=== PATIENT | female | born 1930 | race Caucasian/White ===

== ENCOUNTER 2016-04-27 09:10 | Inpatient (IN) | payer MEDICARE, OTHER ==
[~2016-04-27] VITALS: Ht 165.1 cm; Wt 66.3 kg
[2016-05-01] MEDS ORDERED: WARF-23 PO (11:48)
[2016-05-01] MEDS ORDERED: METF500T PO (11:48)
[2016-05-01] MEDS ORDERED: METO50TA PO (11:48)
[2016-05-01] MEDS ORDERED: AMLO5TAB2 PO (11:48)
[2016-05-01] MEDS ORDERED: HYDR12.56 PO (11:48)
[2016-05-01] MEDS ORDERED: BENI40TA3 PO (11:48)
[2016-05-07] MEDS ORDERED: PHENYLEPH/NS 1000 MCG/10 ML SYR IV ONE (12:00)
[2016-05-07] MEDS ORDERED: ONDANSETRON HCL 4 MG/2 ML VIAL IV PUSH ONE (12:00)
[2016-05-07] MEDS ORDERED: LACTATED RINGER'S 1000 ML INJ 1,000 ML IV ONE (12:00)
[2016-05-07] MEDS ORDERED: NEOSTIGMINE 3 MG/3 ML SYR IV ONE (12:00)
[2016-05-07] MEDS ORDERED: PROPOFOL 200 MG/20 ML AMP IV ONE (12:00)
[2016-05-07 12:38] VITALS: BP 158/75; PULSE 103; RESP 18; TEMP 98; O2SAT 98
[2016-05-07] MEDS ORDERED: ALVIMOPAN 12 MG CAPSULE - On Call PO SCH (12:45)
[2016-05-07] MEDS ORDERED: INSULIN HUMAN REGULAR 1,000 UNITS/10 ML VIAL SQ PRN (12:45)
[2016-05-07] MEDS: SODIUM CHLORID 0.9% 500 ML IV SCH (12:45)
[2016-05-07] MEDS: LACTATED RINGER'S 1000 ML IV SCH (12:45)
[2016-05-07] MEDS ORDERED: METOPROLOL TARTRATE 25 MG TAB PO PRN (12:45)
[2016-05-07] MEDS ORDERED: metroNIDAZOLE 500 MG INJ 100 ML IV ONE (12:48)
[2016-05-07] MEDS ORDERED: ceFAZolin INJ 1,000 MG VIAL ONE (12:48)
[2016-05-07] MEDS ORDERED: SODIUM CHLORIDE 0.9% INJ 100 ML ONE (12:49)
[2016-05-07 13:07] LABS: INTERNATIONAL NORMALIZED RATIO 1.2 RATIO; PROTHROMBIN TIME - PATIENT 13.1 SEC (9.8-11.6)
[2016-05-07] MEDS ORDERED: MIDAZOLAM HCL 2 MG/2 ML VIAL ONE (13:29)
[2016-05-07] MEDS ORDERED: ACETAMINOPHEN 1000 MG/100 ML VIAL IV ONE (13:29)
[2016-05-07] MEDS ORDERED: ceFAZolin 1,000 MG/NS 100 ML IV SCH ×2 (13:45)
[2016-05-07] MEDS ORDERED: DEXT 5%-NACL 0.9% 1000 ML INJ 1,000 ML IV SCH (13:45)
[2016-05-07] MEDS ORDERED: METRONIDAZOLE 500 MG/100 ML ISONTONIC SOLN IV SCH (13:45)
[2016-05-07] MEDS ORDERED: GLUCAGON 1 MG/ML VIAL ONE (15:20)
[2016-05-07] MEDS ORDERED: NALOXONE HCL 0.4 MG/ML AMP IV PRN (16:15)
[2016-05-07] MEDS ORDERED: Post-op Orders (for Pharmacy) MISC XX ONE (16:15)
[2016-05-07] MEDS ORDERED: ACETAMINOPHEN/HYDROcodone 325 MG/5 MG TAB PO PRN ×2 (16:15)
[2016-05-07] MEDS ORDERED: BENZOCAINE 6 MG/MENTHOL 10 MG LOZENGE SUCK-ON PRN (16:15)
[2016-05-07] MEDS ORDERED: POTASSIUM CHLOR 40 MEQ PREMIX 100 ML IV PRN (16:15)
[2016-05-07] MEDS ORDERED: MORPHINE SULFATE 30 MG/30 ML PCA IV SCH (16:15)
[2016-05-07] MEDS ORDERED: ZOLPIDEM TARTRATE 5 MG TAB PO PRN (16:15)
[2016-05-07] MEDS ORDERED: ONDANSETRON HCL 4 MG/2 ML VIAL IV PRN (16:15)
[2016-05-07] MEDS ORDERED: ENALAPRILAT 1.25 MG/ML VIAL IV PRN (16:15)
[2016-05-07] MEDS ORDERED: DO NOT ADM ANY ANTICOAGULANT DRUGS XX PRN (16:15)
[2016-05-07] MEDS ORDERED: POTASSIUM CHLOR 20 MEQ PREMIX 100 ML IV PRN (16:15)
[2016-05-07] MEDS ORDERED: SODIUM CHLORIDE 0.9% FLUSH 5 ML FLUSH IVF PRN (16:15)
[2016-05-07] MEDS ORDERED: GLUCAGON 1 MG/ML VIAL OTHER PRN (16:30)
[2016-05-07] MEDS ORDERED: DEXTROSE 50% IN WATER 50 ML VIAL(D50) IV PUSH PRN (16:30)
[2016-05-07] MEDS ORDERED: fentaNYL CITRATE 250 MCG/5 ML AMP ONE (16:35)
[2016-05-07] MEDS ORDERED: *morphine SULFATE 8 MG/ML PERIprocedure ONLY ONE ×2 (16:39→17:01)
[2016-05-07 16:45] LABS: AUTOMATED NEUTROPHIL # 7.3 TH/MM3 (1.8-7.7); BASOPHIL # 0.1 TH/MM3 (0-0.2); BASOPHIL % 0.6 % (0.0-2.0); EOSINOPHIL # 0.1 TH/MM3 (0-0.4); EOSINOPHIL % 0.8 % (0.0-4.0); HEMATOCRIT 40.9 % (35.0-46.0); HEMO FLAGS DIFF FINAL; LYMPH % 12.6 % (9.0-44.0); LYMPHOCYTE # 1.1 TH/MM3 (1.0-4.8); MEAN CORPUSCULAR HEMOGLOBIN 26.2 PG (27.0-34.0); MEAN CORPUSCULAR HGB CONC 32.8 % (32.0-36.0); MONO % 3.2 % (0.0-8.0); NEUT % 82.8 % (16.0-70.0); PLATELET COUNT 232 TH/MM3 (150-450); RED BLOOD COUNT 5.12 MIL/MM3 (4.00-5.30); RED CELL DISTRIBUTION WIDTH 16.5 % (11.6-17.2); WHITE BLOOD COUNT 8.9 TH/MM3 (4.0-11.0)
[2016-05-07 17:06] LABS: BICARBONATE 24.4 MEQ/L (21.0-32.0); POTASSIUM 3.4 MEQ/L (3.5-5.1)
--- NOTE | 2016-05-07 17:09 | MH ---
cc: MICHELLE ALONSO ARUN M.D. PECK, REBECCA (. M.D. DATE OF ADMISSION 05/07/2016 CHIEF COMPLAINT Rectosigmoid cancer. HISTORY OF PRESENT ILLNESS This patient is an 85-year-old female patient who was referred by Dr. Martinez with a carcinoma of the colon. The patient had a nonobstructing lesion seen by Dr. Martinez on colonoscopy. He was able to do a full colonoscopy and biopsied adenocarcinoma. CT scan of the chest and abdomen was basically normal. There was no evidence of metastatic disease. The patient says that she developed bleeding about a year ago. She was placed on blood thinners for her atrial fibrillation, has noted bleeding all along. Dr. Anette Porter, her family doctor, had recommended colonoscopy screening to her for long time, but she had not agreed to have that done until at this time. PAST MEDICAL HISTORY 1. Hypertension 2. Atrial fibrillation 4. Diabetes. FAMILY HISTORY Unknown. SOCIAL HISTORY Occasional alcohol. The patient does not smoke. MEDICATIONS 1. Calcium 2. [place] 3. 3. Ocuvite. 4. Magnesium. 5. Coumadin 5 mg a day 6. Amlodipine 5 mg a day. 7. Metformin 500 mg daily. 8. Metoprolol 50 mg daily. 9. Multivitamins. PAST SURGICAL HISTORY 1. Mastectomy 2. Hysterectomy. PHYSICAL EXAMINATION GENERAL: Well-developed, well-nourished female in no acute distress. SKIN: Warm and dry. HEENT: Extraocular muscles intact. NECK: Supple. LUNGS: Chest is clear. ABDOMEN: Flat, soft, nontender. No masses. RECTAL: Within normal limits. Flexible sigmoidoscopy shows a lesion at about 15-17 cm. EXTREMITIES: Range of motion within normal limits except the right knee which is arthritic and painful. IMPRESSION Carcinoma of the rectosigmoid colon. PLAN Recommend sigmoid colectomy, low anterior resection. I have explained the risks and benefits to the patient. She understands and wishes to proceed. MD NICOLE Nelson/ /4:28 PM /5:02 PM
[2016-05-07] MEDS ORDERED: *LABETALOL HCL 100 MG/20 ML VIAL PERIprocedural Use ONLY ONE (17:31)
[2016-05-07] MEDS: D5-LR + KCL 20 MEQ INJ 1,000 ML IV SCH ×2 (17:40→22:45)
[2016-05-07] MEDS: METOCLOPRAMIDE HCL 10 MG/2 ML VIAL IVS SCH (18:22)
[2016-05-07] MEDS: FUROSEMIDE 20 MG/2 ML VIAL IV SCH (20:45)
[2016-05-07] MEDS: metroNIDAZOLE 500 MG INJ 100 ML IV SCH (20:45)
[2016-05-07] MEDS: SODIUM CHLORIDE 0.9% FLUSH 5 ML FLUSH IVF SCH (21:00)
[2016-05-07] MEDS: METOPROLOL TARTRATE 50 MG TAB PO SCH (21:00)
[2016-05-07] MEDS: INSULIN NovoLIN REGULAR SUPPLEMENTAL SCALE SQ SCH (21:00)
[2016-05-07] MEDS: ceFAZolin 2 GM PREMIX 50 ML IV SCH (21:50)
[2016-05-08] VITALS (13 sets, daily range): BP systolic 132–159; BP diastolic 70–88; PULSE 75–96; RESP 18; TEMP 98.3–98.5; O2SAT 96–99
[2016-05-08] MEDS: metroNIDAZOLE 500 MG INJ 100 ML IV SCH ×2 (04:45→13:28)
[2016-05-08] MEDS: SODIUM CHLORID 0.9% 500 ML IV SCH (05:25)
[2016-05-08] MEDS: ceFAZolin 2 GM PREMIX 50 ML IV SCH ×2 (05:45→13:28)
[2016-05-08] MEDS: METOCLOPRAMIDE HCL 10 MG/2 ML VIAL IVS SCH ×4 (06:00→17:08)
[2016-05-08] MEDS: D5-LR + KCL 20 MEQ INJ 1,000 ML IV SCH ×3 (06:20→21:34)
[2016-05-08 07:11] LABS: BASOPHIL % 0.1 % (0.0-2.0); HEMO FLAGS DIFF FINAL; LYMPH % 6.5 % (9.0-44.0); LYMPHOCYTE # 0.7 TH/MM3 (1.0-4.8); MEAN CELL VOLUME 79.7 FL (80.0-100.0); MEAN CORPUSCULAR HEMOGLOBIN 27.4 PG (27.0-34.0); MEAN CORPUSCULAR HGB CONC 34.4 % (32.0-36.0); MONO % 7.9 % (0.0-8.0); NEUT % 85.5 % (16.0-70.0); PLATELET COUNT 209 TH/MM3 (150-450); RED BLOOD COUNT 4.26 MIL/MM3 (4.00-5.30); RED CELL DISTRIBUTION WIDTH 16.5 % (11.6-17.2); WHITE BLOOD COUNT 10.5 TH/MM3 (4.0-11.0)
[2016-05-08] MEDS: INSULIN NovoLIN REGULAR SUPPLEMENTAL SCALE SQ SCH ×4 (07:15→21:00)
[2016-05-08 07:28] LABS: BICARBONATE 25.4 MEQ/L (21.0-32.0); POTASSIUM 3.8 MEQ/L (3.5-5.1)
[2016-05-08] MEDS: amLODIPine BESYLATE 5 MG TAB PO SCH (09:00)
[2016-05-08] MEDS: FUROSEMIDE 20 MG/2 ML VIAL IV SCH ×2 (09:00→21:05)
[2016-05-08] MEDS: ALVIMOPAN 12 MG CAPSULE - Post-op dosing PO SCH ×2 (09:00→21:05)
[2016-05-08] MEDS: PANTOPRAZOLE SODIUM 40 MG VIAL IVP SCH (09:00)
[2016-05-08] MEDS: SODIUM CHLORIDE 0.9% FLUSH 5 ML FLUSH IVF SCH ×2 (09:00→21:00)
[2016-05-08] MEDS: LOSARTAN 50 MG TAB PO SCH (09:00)
[2016-05-08] MEDS: METOPROLOL TARTRATE 50 MG TAB PO SCH ×2 (09:00→21:05)
[2016-05-08] MEDS: LACTATED RINGER'S 1000 ML IV SCH (12:45)
[2016-05-08] MEDS: PCA - TOTAL MG MORPHINE DELIVERED PER SHIFT SCH ×2 (14:00→22:00)
--- NOTE | 2016-05-08 15:55 | HHI.PR ---
Subjective Remarks No complaints. No N or V. No BMs. Has not been OOB to chair yet. D/W RNs Objective Vital Signs Date Time Temp Pulse Resp B/P Pulse Ox O2 Delivery O2 Flow Rate FiO2 05/08/16 15:34 98 Nasal Cannula 3.00 05/08/16 14:38 83 05/08/16 14:00 18 05/08/16 13:12 75 05/08/16 11:20 98.3 96 18 132/78 98 05/08/16 09:55 98.6 100 14 136/71 98 Nasal Cannula 2 05/08/16 07:30 98.4 108 14 128/72 98 Nasal Cannula 2 05/08/16 06:00 98.4 101 13 142/69 98 Nasal Cannula 2 05/08/16 05:00 99 12 133/68 99 Nasal Cannula 2 05/08/16 04:00 98.5 97 12 171/93 94 Nasal Cannula 2 05/08/16 03:00 101 12 94/45 95 Nasal Cannula 2 05/08/16 02:00 98.8 96 12 130/67 96 Nasal Cannula 2 05/08/16 01:00 92 12 135/75 94 Nasal Cannula 2 05/08/16 00:00 98.5 95 12 131/59 95 Nasal Cannula 2 05/07/16 23:00 91 12 121/56 95 Nasal Cannula 2 05/07/16 22:00 98.1 94 12 104/54 96 Nasal Cannula 2 05/07/16 21:00 103 15 141/73 93 Nasal Cannula 2 05/07/16 20:00 97.8 108 13 120/62 92 Nasal Cannula 2 05/07/16 19:00 105 15 158/86 97 Nasal Cannula 2 05/07/16 18:30 102 12 146/68 96 Nasal Cannula 2 05/07/16 18:00 97.7 106 12 151/78 95 Nasal Cannula 2 05/07/16 17:49 12 05/07/16 17:45 104 12 140/55 95 Nasal Cannula 2 05/07/16 17:30 105 12 180/90 97 Nasal Cannula 2 05/07/16 17:15 102 12 160/104 96 Nasal Cannula 2 05/07/16 17:00 99 12 156/93 96 Nasal Cannula 2 05/07/16 16:45 98 12 185/85 96 Nasal Cannula 3 05/07/16 16:30 93 14 171/98 97 Nasal Cannula 3 05/07/16 16:20 97.5 89 14 181/89 99 Nasal Cannula 3 I/O 05/07/16 05/07/16 05/07/16 05/08/16 05/08/16 05/08/16 07:00 15:00 23:00 07:00 15:00 23:00 Intake Total 2575 ml Output Total 685 ml 520 ml Balance 1890 ml -520 ml Intake IV Total 1175 ml Other 1400 ml Output Urine Total 565 ml 450 ml Drainage Total 70 ml 70 ml Estimated Blood Loss 50 ml Result Diagram: 05/08/16 0632 05/08/16 0632 Objective Remarks VS-S Abd: flat,soft,dressing dry I&Os-OK Labs-OK Assessment and Plan Assessment and Plan Stable POD#1 Plan: must be OOB today-D/W RNs FLD tomorrow D/C tele Transfer to [facility] D/C INSTRUMENT/CONTROL TECHNICIAN and parra in Qamar Puga MD May 08, 2016 15:55
[2016-05-08] MEDS: HEPARIN SODIUM - SQ 10,000 UNITS/ML VIAL SQ SCH (17:07)
[2016-05-08] MEDS: ALVIMOPAN 12 MG CAPSULE PO SCH (21:00)
[2016-05-09] VITALS (14 sets, daily range): BP systolic 140–177; BP diastolic 69–88; PULSE 70–108; RESP 17–20; TEMP 97.6–99.4; O2SAT 94–97
[2016-05-09] MEDS: METOCLOPRAMIDE HCL 10 MG/2 ML VIAL IVS SCH ×4 (01:24→17:45)
[2016-05-09] MEDS: D5-LR + KCL 20 MEQ INJ 1,000 ML IV SCH ×2 (02:40→15:20)
[2016-05-09] MEDS: HEPARIN SODIUM - SQ 10,000 UNITS/ML VIAL SQ SCH ×2 (03:48→15:18)
[2016-05-09] MEDS: PCA - TOTAL MG MORPHINE DELIVERED PER SHIFT SCH (06:00)
[2016-05-09] MEDS: INSULIN NovoLIN REGULAR SUPPLEMENTAL SCALE SQ SCH ×4 (06:06→21:26)
[2016-05-09] MEDS: amLODIPine BESYLATE 5 MG TAB PO SCH (06:11)
[2016-05-09 07:33] LABS: BASOPHIL # 0.1 TH/MM3 (0-0.2); BASOPHIL % 0.7 % (0.0-2.0); EOSINOPHIL # 0.1 TH/MM3 (0-0.4); HEMATOCRIT 38.2 % (35.0-46.0); HEMO FLAGS DIFF FINAL; LYMPH % 11.6 % (9.0-44.0); LYMPHOCYTE # 1.3 TH/MM3 (1.0-4.8); MEAN CELL VOLUME 80.2 FL (80.0-100.0); MEAN CORPUSCULAR HEMOGLOBIN 26.2 PG (27.0-34.0); MEAN CORPUSCULAR HGB CONC 32.7 % (32.0-36.0); MONO % 7.2 % (0.0-8.0); NEUT % 79.5 % (16.0-70.0); PLATELET COUNT 207 TH/MM3 (150-450); RED BLOOD COUNT 4.77 MIL/MM3 (4.00-5.30); RED CELL DISTRIBUTION WIDTH 16.4 % (11.6-17.2); WHITE BLOOD COUNT 11.3 TH/MM3 (4.0-11.0)
[2016-05-09 08:07] LABS: BICARBONATE 28.7 MEQ/L (21.0-32.0); POTASSIUM 3.6 MEQ/L (3.5-5.1)
[2016-05-09] MEDS: ALVIMOPAN 12 MG CAPSULE PO SCH ×2 (09:00→21:00)
[2016-05-09] MEDS: FUROSEMIDE 20 MG/2 ML VIAL IV SCH ×2 (09:16→21:14)
[2016-05-09] MEDS: METOPROLOL TARTRATE 50 MG TAB PO SCH ×2 (09:17→21:13)
[2016-05-09] MEDS: ALVIMOPAN 12 MG CAPSULE - Post-op dosing PO SCH ×2 (09:17→21:13)
[2016-05-09] MEDS: PANTOPRAZOLE SODIUM 40 MG VIAL IVP SCH (09:17)
[2016-05-09] MEDS: LOSARTAN 50 MG TAB PO SCH (09:17)
[2016-05-09] MEDS: SODIUM CHLORIDE 0.9% FLUSH 5 ML FLUSH IVF SCH ×2 (09:18→21:00)
[2016-05-09] MEDS: LACTATED RINGER'S 1000 ML IV SCH (11:08)
--- NOTE | 2016-05-09 11:54 | HHI.PR ---
Subjective Remarks No complaints. No N or V. No BMs. Tolerating PO liquids Objective Vital Signs Date Time Temp Pulse Resp B/P Pulse Ox O2 Delivery O2 Flow Rate FiO2 05/09/16 11:00 99.4 80 17 140/72 96 05/09/16 09:59 95 21 05/09/16 09:20 95 21 05/09/16 07:00 97.7 90 20 160/79 97 05/09/16 06:00 90 05/09/16 06:00 18 05/09/16 05:00 108 05/09/16 04:00 84 05/09/16 03:00 70 05/09/16 03:00 97.6 83 177/87 95 05/09/16 02:00 86 05/09/16 01:00 88 05/09/16 00:00 86 05/08/16 23:00 78 05/08/16 23:00 98.5 91 159/88 99 05/08/16 22:00 84 05/08/16 22:00 18 05/08/16 21:00 90 05/08/16 20:00 80 05/08/16 19:00 82 05/08/16 19:00 98.3 80 139/70 96 05/08/16 18:37 81 05/08/16 17:28 85 05/08/16 16:09 83 05/08/16 15:45 98.4 95 18 142/74 98 05/08/16 15:45 95 05/08/16 15:34 98 Nasal Cannula 3.00 05/08/16 14:38 83 05/08/16 14:00 18 05/08/16 13:12 75 I/O 05/08/16 05/08/16 05/08/16 05/09/16 05/09/16 05/09/16 07:00 15:00 23:00 07:00 15:00 23:00 Intake Total 840 ml 480 ml Output Total 520 ml 1800 ml 2555 ml Balance -520 ml -960 ml -2075 ml Intake Oral 840 ml 480 ml Output Urine Total 450 ml 1750 ml 2550 ml Drainage Total 70 ml 50 ml 5 ml Result Diagram: 05/09/1615 05/09/16514 Objective Remarks VS-S Abd: flat,soft,dressing removed I&Os-OK Labs-OK Assessment and Plan Assessment and Plan Stable POD#2 Plan: FLD D/C tele Transfer to [facility] 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 Check PT/INR in AM Ambulate Qamar Puga MD May 09, 2016 11:54
[2016-05-09] MEDS: WARFARIN SOD 5 MG TAB PO SCH (15:19)
[2016-05-10] VITALS: BP 148/74; PULSE 92; RESP 18; TEMP 97.2; O2SAT 93
[2016-05-10 04:32] VITALS: BP 162/81; PULSE 85; RESP 18; TEMP 97.3; O2SAT 90
[2016-05-10] MEDS: HEPARIN SODIUM - SQ 10,000 UNITS/ML VIAL SQ SCH ×2 (04:36→15:46)
[2016-05-10] MEDS: METOCLOPRAMIDE HCL 10 MG/2 ML VIAL IVS SCH ×4 (05:44→17:11)
[2016-05-10] MEDS: INSULIN NovoLIN REGULAR SUPPLEMENTAL SCALE SQ SCH ×4 (05:49→22:05)
[2016-05-10] MEDS: D5-LR + KCL 20 MEQ INJ 1,000 ML IV SCH (05:50)
[2016-05-10 07:40] LABS: INTERNATIONAL NORMALIZED RATIO 1.1 RATIO; PROTHROMBIN TIME - PATIENT 12.5 SEC (9.8-11.6)
[2016-05-10 08:00] VITALS: BP 169/86; PULSE 86; RESP 20; TEMP 98; O2SAT 93
--- NOTE | 2016-05-10 08:22 | MP ---
cc: TRA PUGA M.D., ARUN M.D. PECK, REBECCA (. M.D. DATE OF SURGERY: 05/07/2016 PREOPERATIVE DIAGNOSIS: Rectosigmoid carcinoma. POSTOPERATIVE DIAGNOSIS: 1. Rectosigmoid carcinoma. 2. Short segment diverticulitis with colovaginal fistula. 3. Cholelithiasis. OPERATIVE PROCEDURE 1. Full left colectomy with colorectal anastomosis. 2. Closure of vaginal cuff. 3. Mobilization of the splenic flexure and omental flap. SURGEON Dr. Puga. VEGETABLE WORKER: Dr. Spring. ESTIMATED BLOOD LOSS: 100 cc OPERATING TIME One hour and 50 minutes. OPERATIVE FINDINGS This patient was referred to me by Dr. Justin Martinez with a rectosigmoid carcinoma. She is 85 years old and her first colonoscopy at this time. Exploration of the abdominal cavity revealed that the liver was palpably normal. The gallbladder had one good size stone present in the gallbladder but the gallbladder looked otherwise non-thickened and normal and was left alone. The stomach and small bowel was all palpably normal as was the remainder of the colon. She did have extensive diverticulosis throughout the colon and was found to have a short segment of diverticulitis densely stuck to the left pelvic sidewall in the sigmoid, at first thought to be her carcinoma but the carcinoma was then palpated just below this area at the rectosigmoid junction. The diverticular segment was found to be stuck to the cuff of the vagina from her previous hysterectomy and she had a colovaginal fistula with stool draining out of the vagina. Of note when dissecting this off of the left pelvic sidewall the left external iliac vein prior to entering the femoral canal was tented into this area and was very close to the lesion as was the left ureter. Both were dissected free without injury. There was a superficial cautery burn on the outside surface of the iliac vein and this was approximated with several 5-0 Prolene sutures, simply to reinforce it. The full left colon was removed because of the extensive diverticular disease and she did not have a very long redundant sigmoid colon. Full mobilization of the splenic flexure was done with the omentum from the transverse colon and an omental flap was placed in the pelvis between the colorectal anastomosis and the vaginal cuff. OPERATIVE TECHNIQUE The patient was placed on the table in the supine position. After adequate general endotracheal anesthesia, the legs were placed in the perineal lithotomy position, and the abdomen and perineum were prepped and draped in the usual manner. Upon prepping, the nursing staff noted stool coming from the vagina. Once the abdomen and perineum were prepped and draped in the usual manner, a transverse infraumbilical skin incision was made and carried down through the subcutaneous tissue and rectus muscle and peritoneal cavity was entered with the above-mentioned findings. Our attention was turned to the sigmoid and descending colon. It was mobilized along its peritoneal reflection and the splenic flexure was likewise mobilized as was the transverse colon. The omentum was mobilized from the transverse colon creating the omental flap. Because of the diverticular segment stuck densely to the left pelvic sidewall right at the outlet of the pelvis over the left ureter and iliac vein, the superior hemorrhoidal vessels were doubly clamped, cut, and doubly ligated with 0 Vicryl ligature as was the inferior mesenteric vein. The retrorectal space was entered and the lateral pelvic peritoneum was incised on the right side and the posterior rectum was mobilized to the pelvic floor. We then slowly dissected the left pelvic sidewall and diverticular segment, and the left ovarian vessels were clamped, cut, and ligated. It should be mentioned that the uterus is surgically absent leaving the vaginal cuff stuck to this diverticular segment. The right ovary and tube were present. I assume that the left tube and ovary were in the specimen. After clamping, cutting and ligating the left ovarian vessels, the left pelvic sidewall was dissected carefully and the ureter was densely stuck posterolaterally to this segment. The peritoneum of the left pelvic sidewall was excised because we originally thought this was her cancer. The left external iliac vein where it began to go up into the femoral canal was tented over into this process and it was dissected free. In the process of doing this, there was a burn crease placed on the adventitia of the iliac vein and this was reinforced with 5-0 Prolene vascular suture. The vein was never entered and no blood loss was caused by this. Next the process was dissected free and that is when we felt the rectosigmoid cancer below this process several centimeters. Once this was identified, the rectal mesentery was clamped, cut and ligated and the rectum was cleared several centimeters below the carcinoma and the pursestring stapling device was placed on the rectum and the rectum was divided. We then clamped, cut and ligated the left colic vessels and the dissection was taken up to the marginal vessels just lateral to the middle colic vessels. This mobilized the full splenic flexure. We then chose a placed in the descending colon for division. There were still multiple diverticula present but we were able to clamp, cut and ligate the mesentery and clear the bowel between the diverticula and the pursestring stapling device was placed in the proximal bowel. The specimen was removed from the table and opened, identifying the diverticular segment and the rectosigmoid carcinoma. Once this was accomplished the anvil of the Ethicon 33 ILS stapling device was placed in the proximal bowel and the pursestring was tied. We made sure that none of the diverticula were going to be in the anastomotic staple line. Dr. Spring then went below and placed the EEA instrument transanally and the distal pursestring was tied, and the instrument was connected, closed and fired, creating the anastomosis with no tension on the anastomosis. The blood supply was excellent. Dr. Spring then did proctosigmoidoscopy examination, insufflating air into the rectum with saline solution in the pelvis and no air leaks were identified. Once this was accomplished, the pelvis and lower abdomen were irrigated thoroughly with three liters of saline solution, aspirated dry. Hemostasis was maintained throughout with electrocautery and ligature. Next we closed the small area of the vaginal cuff which had been opened with the division of the diverticular segment and was closed with running 3-0 Vicryl suture in a simple running manner. The full length of this hole was approximately 2 cm. Once this was done the omentum was laid down the left colic gutter and into the pelvis, between the area of the colorectal anastomosis and the vagina, keeping the area . A drain was placed through a separate stab wound in the right lower quadrant in the retrorectal space and the pelvis. The bowels were replaced in the abdominal cavity in an plastic joint maker manner. The abdominal cavity was then closed in layers using a double stranded #1 PDS for the posterior rectus sheath. That muscle layer was then irrigated with a liter of saline solution, aspirated dry, and the anterior rectus sheath was closed with a double stranded #1 PDS as well. The subcutaneous tissue was irrigated thoroughly with saline solution, aspirated dry and the skin was closed with running 3-0 Vicryl subcuticular suture and a dressing was applied. Sponge, needle and instrument counts were reported as correct. Estimated blood loss was 100 cc. Operating time was 1 hour and 50 minutes. MD NICOLE Nelson/PHILIP /4:32 PM /8:01 AM
[2016-05-10] MEDS: METOPROLOL TARTRATE 50 MG TAB PO SCH ×2 (08:24→22:04)
[2016-05-10] MEDS: amLODIPine BESYLATE 5 MG TAB PO SCH (08:24)
[2016-05-10] MEDS: ALVIMOPAN 12 MG CAPSULE - Post-op dosing PO SCH ×2 (08:24→22:04)
[2016-05-10] MEDS: LOSARTAN 50 MG TAB PO SCH (08:24)
[2016-05-10] MEDS: PANTOPRAZOLE SODIUM 40 MG VIAL IVP SCH (08:25)
[2016-05-10] MEDS: SODIUM CHLORIDE 0.9% FLUSH 5 ML FLUSH IVF SCH ×2 (08:25→21:00)
[2016-05-10] MEDS: FUROSEMIDE 20 MG/2 ML VIAL IV SCH (08:25)
[2016-05-10] MEDS: ALVIMOPAN 12 MG CAPSULE PO SCH ×2 (08:25→21:00)
--- NOTE | 2016-05-10 09:06 | HHI.PR ---
Subjective Remarks No complaints. No N or V. No BMs. Reg diet today Objective Vital Signs Date Time Temp Pulse Resp B/P Pulse Ox O2 Delivery O2 Flow Rate FiO2 05/10/16 04:32 97.3 85 18 162/81 90 05/10/16 00:00 97.2 92 18 148/74 93 05/09/16 20:00 97.9 90 18 147/69 94 05/09/16 18:31 98.6 89 20 141/88 94 05/09/16 15:30 98.0 92 19 163/73 94 05/09/16 11:00 99.4 80 17 140/72 96 05/09/16 09:59 95 21 05/09/16 09:20 95 21 I/O 05/09/16 05/09/16 05/09/16 05/10/16 05/10/16 05/10/16 07:00 15:00 23:00 07:00 15:00 23:00 Intake Total 480 ml 3173 ml 1288 ml Output Total 2555 ml 1950 ml 1610 ml 300 ml Balance -2075 ml 1223 ml -322 ml -300 ml Intake Oral 480 ml 1040 ml 120 ml IV Total 2133 ml 1168 ml Output Urine Total 2550 ml 1750 ml 1550 ml 300 ml Drainage Total 5 ml 200 ml 60 ml # Bowel Movements 0 Result Diagram: 05/09/16 0515 05/09/16 0515 Objective Remarks VS-S Abd: flat,soft,dressing removed I&Os-OK Labs-OK Drain-Still draining Assessment and Plan Assessment and Plan Stable POD#3 Plan: Reg diet Cont coumadin tonight. Check PT/INR in AM Ambulate in [place] Qamar Puga MD May 10, 2016 09:06
[2016-05-10] MEDS: LACTATED RINGER'S 1000 ML IV SCH (11:04)
[2016-05-10] MEDS: HYDROCHLOROTHIAZIDE 12.5 MG CAP PO SCH (11:04)
[2016-05-10 12:00] VITALS: BP 115/59; PULSE 77; RESP 18; TEMP 98.1; O2SAT 97
[2016-05-10] MEDS: WARFARIN SOD 5 MG TAB PO SCH (15:46)
[2016-05-10 16:00] VITALS: BP 151/67; PULSE 97; RESP 18; TEMP 99.5; O2SAT 93
[2016-05-10 20:00] VITALS: BP 167/76; PULSE 98; RESP 18; TEMP 98.4; O2SAT 95
[2016-05-11] VITALS (7 sets, daily range): BP systolic 132–172; BP diastolic 60–85; PULSE 80–101; RESP 17–20; TEMP 96.8–98.8; O2SAT 93–98
[2016-05-11] MEDS: METOCLOPRAMIDE HCL 10 MG/2 ML VIAL IVS SCH ×5 (01:10→23:57)
[2016-05-11] MEDS: D5-LR + KCL 20 MEQ INJ 1,000 ML IV SCH ×2 (01:11→20:55)
[2016-05-11] MEDS: HEPARIN SODIUM - SQ 10,000 UNITS/ML VIAL SQ SCH ×2 (03:38→15:05)
[2016-05-11 05:40] LABS: INTERNATIONAL NORMALIZED RATIO 1.3 RATIO
[2016-05-11] MEDS: INSULIN NovoLIN REGULAR SUPPLEMENTAL SCALE SQ SCH ×4 (06:02→21:00)
[2016-05-11] MEDS: SODIUM CHLORIDE 0.9% FLUSH 5 ML FLUSH IVF SCH ×2 (08:26→20:55)
[2016-05-11] MEDS: amLODIPine BESYLATE 5 MG TAB PO SCH (08:27)
[2016-05-11] MEDS: METOPROLOL TARTRATE 50 MG TAB PO SCH ×2 (08:27→20:55)
[2016-05-11] MEDS: ALVIMOPAN 12 MG CAPSULE PO SCH ×2 (08:27→20:55)
[2016-05-11] MEDS: HYDROCHLOROTHIAZIDE 12.5 MG CAP PO SCH (08:27)
[2016-05-11] MEDS: LOSARTAN 50 MG TAB PO SCH (08:27)
[2016-05-11] MEDS: PANTOPRAZOLE SODIUM 40 MG VIAL IVP SCH (08:28)
[2016-05-11] MEDS: ALVIMOPAN 12 MG CAPSULE - Post-op dosing PO SCH ×2 (08:29→20:55)
--- NOTE | 2016-05-11 10:33 | HHI.PR ---
Subjective Remarks No complaints. No N or V. No BMs. Passing flatus. Objective Vital Signs Date Time Temp Pulse Resp B/P Pulse Ox O2 Delivery O2 Flow Rate FiO2 05/11/16 08:00 97.8 101 18 161/78 94 05/11/16 04:00 98.8 82 18 172/85 95 05/11/16 00:00 98.4 90 18 142/60 95 05/10/16 20:00 98.4 98 18 167/76 95 05/10/16 16:00 99.5 97 18 151/67 93 05/10/16 12:00 98.1 77 18 115/59 97 I/O 05/10/16 05/10/16 05/10/16 05/11/16 05/11/16 05/11/16 07:00 15:00 23:00 07:00 15:00 23:00 Intake Total 1288 ml 952 ml 519 ml 611 ml Output Total 1610 ml 1400 ml 590 ml 595 ml Balance -322 ml -448 ml -71 ml 16 ml Intake Oral 120 ml 480 ml 120 ml 240 ml IV Total 1168 ml 472 ml 399 ml 371 ml Output Urine Total 1550 ml 1350 ml 550 ml 525 ml Drainage Total 60 ml 50 ml 40 ml 70 ml # Bowel Movements 0 0 0 0 Result Diagram: 05/09/1651405/09/16514 Objective Remarks VS-S Abd: flat,soft,dressing removed,wound clean I&Os-OK Labs-OK. INR 1.2 Drain-Removed by me Assessment and Plan Assessment and Plan Stable POD#4 Plan: Reg diet Cont coumadin tonight. Check PT/INR in AM Ambulate in halls Drain removed. Probable D/C tomorrow Qamar Puga MD May 11, 2016 10:03
[2016-05-11] MEDS: LACTATED RINGER'S 1000 ML IV SCH (12:45)
[2016-05-11] MEDS: WARFARIN SOD 5 MG TAB PO SCH (17:22)
[2016-05-12] MEDS: HEPARIN SODIUM - SQ 10,000 UNITS/ML VIAL SQ SCH (03:27)
[2016-05-12 05:02] LABS: INTERNATIONAL NORMALIZED RATIO 1.8 RATIO; PROTHROMBIN TIME - PATIENT 20.8 SEC (9.8-11.6)
[2016-05-12] MEDS: INSULIN NovoLIN REGULAR SUPPLEMENTAL SCALE SQ SCH ×2 (05:45→11:00)
[2016-05-12] MEDS: METOCLOPRAMIDE HCL 10 MG/2 ML VIAL IVS SCH ×2 (05:46→11:25)
[2016-05-12 08:00] VITALS: BP 177/79; PULSE 88; RESP 19; TEMP 97.4; O2SAT 95
[2016-05-12] MEDS: ALVIMOPAN 12 MG CAPSULE - Post-op dosing PO SCH (09:00)
[2016-05-12] MEDS: SODIUM CHLORIDE 0.9% FLUSH 5 ML FLUSH IVF SCH (09:00)
[2016-05-12] MEDS: ALVIMOPAN 12 MG CAPSULE PO SCH (09:15)
[2016-05-12] MEDS: LOSARTAN 50 MG TAB PO SCH (09:16)
[2016-05-12] MEDS: METOPROLOL TARTRATE 50 MG TAB PO SCH (09:16)
[2016-05-12] MEDS: HYDROCHLOROTHIAZIDE 12.5 MG CAP PO SCH (09:16)
[2016-05-12] MEDS: amLODIPine BESYLATE 5 MG TAB PO SCH (09:17)
[2016-05-12] MEDS: PANTOPRAZOLE SODIUM 40 MG VIAL IVP SCH (09:17)
[2016-05-12] MEDS: LACTATED RINGER'S 1000 ML IV SCH (11:26)
[2016-05-12 12:00] VITALS: BP 142/65; PULSE 76; RESP 18; TEMP 99.4; O2SAT 97
--- NOTE | 2016-05-12 13:43 | HHI.DCPOC ---
Discharge Care Plan Diagnosis: (1) Cancer, colon (2) Status post partial resection of colon Your Health Problems Are: Incision/Drains Appetite Changes Irregular Bowel Function Exercise Tolerance Goals to Promote Your Health * To prevent worsening of your condition and complications * To maintain your health at the optimal level Directions to Meet Your Goals Take your medications as prescribed Follow your dietary instruction Follow activity as directed Keep your appointments as scheduled Take your immunizations and boosters as scheduled If your symptoms worsen call your PCP, if no PCP go to Urgent Care Center or Emergency Room Smoking is Dangerous to Your Health. Avoid second hand smoke Call the 24-hour hour crisis hotline for domestic abuse at Qamar Puga MD May 12, 2016 13:43
--- NOTE | 2016-05-31 09:41 | MD ---
cc: HAWK WRIGHT M.D., JOHN T. M.D. ADMISSION DATE: 05/07/2016 DISCHARGE DATE: 05/12/2016 ADMISSION DIAGNOSIS Rectosigmoid carcinoma. DISCHARGE DIAGNOSIS Rectosigmoid carcinoma. OPERATIVE PROCEDURE 05/07/2016 1. Full left colectomy with colorectal anastomosis. 2. Closure of vaginal cuff. 3. Mobilization of splenic flexure and omental flap. HISTORY This patient was referred to me by Dr. Hawk Wright with a rectosigmoid carcinoma. She is 85 years old had her first colonoscopy at this time. PATHOLOGY REPORT The pathology report on the removed specimen revealed a rectosigmoid carcinoma 3.5 x 3 x 1.5 cm in size, it was low grade well-differentiated lesion. This was at T2 N0 lesion, 0 of 12 lymph nodes contained metastatic carcinoma. HOSPITAL COURSE The patient was admitted to the hospital on 05/07/2016 and underwent full left colectomy as mentioned above. Exploration of the abdominal cavity did reveal a good size gallstone but the gallbladder looked otherwise normal, non-thickened and was left alone. She also had extensive diverticulosis throughout the colon as well as a short segment of diverticulitis densely stuck to the left pelvic sidewall in the sigmoid colon which is first thought to be her carcinoma on palpation at surgery. For this reason, a full left colectomy was done and a colorectal anastomosis was done dissecting this inflammatory diverticular segment off of the vagina where she clearly had a colovaginal fistula with stool draining from the vagina. Postoperatively she did well and on the first postoperative day she was started on clear liquids. On the second postoperative day she continued to do well and was started on full liquids. On the third postoperative day she continued to do well and was started on a regular diet. On postoperative day #4 she was doing well and she was discharged from the hospital on postoperative day #5 in good condition. DISCHARGE INSTRUCTIONS: She was instructed to do no driving for two weeks, do no heavy lifting for six weeks and to call me with any problems. She is instructed to follow up with me in the office in two weeks time. MD NICOLE Nelson/PHILIP /1:13 PM 9:30 AM
== END 2016-05-12 14:57 | disposition home or self-care (01) | DRG 330 ==
LOC: HSDI 05-07 11:30 → EDUNIT# 05-07 13:30 → HPAC 05-07 23:38 → HCIN 05-08 10:00 → HCIS 05-09 17:30 → N07B 05-09 17:52
PROVIDERS: ADMIT Colon & Rectal Surgery; ATTEND Colon & Rectal Surgery
PROC: 0WUF07Z Supplement Abdominal Wall with Autologous Tissue Substitute, Open Approach (ICD-10-PCS; 2016-05-07)
PROC: 0DJD8ZZ Inspection of Lower Intestinal Tract, Via Natural or Artificial Opening Endoscopic (ICD-10-PCS; 2016-05-07)
PROC: 0DTG0ZZ Resection of Left Large Intestine, Open Approach (ICD-10-PCS; principal; 2016-05-07 13:33)
DX: C19 Malignant neoplasm of rectosigmoid junction (principal); K57.92 Diverticulitis of intestine, part unspecified, without perforation or abscess without bleeding; I48.91 Unspecified atrial fibrillation; E11.9 Type 2 diabetes mellitus without complications; I10 Essential (primary) hypertension; K80.20 Calculus of gallbladder without cholecystitis without obstruction; Z90.710 Acquired absence of both cervix and uterus
CPT/HCPCS: 80048; 82948; 85025; 85610; 86850; 86900; 86901; 88309; 94150; C9113; J0131; J0690; J1610; J1644; J1940; J2250; J2270; J2370; J2405; J2710; J2765; J3010; J3480; J7120

== ENCOUNTER → 2016-05-01 | Outpatient (CLI) | payer MEDICARE, OTHER ==
[~2016-05-01] MED LIST: AMLO5TAB2 PO; BENI40TA3 PO; HYDR12.56 PO; METF500T PO; METO50TA PO; WARF-23 PO
[2016-05-01 10:46] LABS: BASOPHIL # 0.1 TH/MM3 (0-0.2); BASOPHIL % 1.1 % (0.0-2.0); EOSINOPHIL # 0.3 TH/MM3 (0-0.4); EOSINOPHIL % 4.4 % (0.0-4.0); HEMATOCRIT 40.9 % (35.0-46.0); HEMO FLAGS DIFF FINAL; LYMPH % 36.3 % (9.0-44.0); LYMPHOCYTE # 2.2 TH/MM3 (1.0-4.8); MEAN CELL VOLUME 80.8 FL (80.0-100.0); MEAN CORPUSCULAR HEMOGLOBIN 26.2 PG (27.0-34.0); MEAN CORPUSCULAR HGB CONC 32.4 % (32.0-36.0); MONO % 8.9 % (0.0-8.0); NEUT % 49.3 % (16.0-70.0); PLATELET COUNT 254 TH/MM3 (150-450); RED BLOOD COUNT 5.07 MIL/MM3 (4.00-5.30); RED CELL DISTRIBUTION WIDTH 16.5 % (11.6-17.2)
[2016-05-01 10:54] LABS: APTT (PATIENT) 33.1 SEC (24.3-30.1); INTERNATIONAL NORMALIZED RATIO 2.1 RATIO; PROTHROMBIN TIME - PATIENT 23.5 SEC (9.8-11.6)
[2016-05-01 11:19] LABS: ALT (GPT) 18 U/L (10-53); ANION GAP 5 MEQ/L (5-15); AST (GOT) 16 U/L (15-37); BICARBONATE 30.6 MEQ/L (21.0-32.0); BLOOD UREA NITROGEN 23 MG/DL (7-18); CHLORIDE 106 MEQ/L (98-107); GLOMERULAR FILTRATION RATE 35 ML/MIN (>89); GLUCOSE,FASTING 91 MG/DL (74-99); POTASSIUM 4.1 MEQ/L (3.5-5.1); SODIUM (NA) 142 MEQ/L (136-145)
[2016-05-01 11:21] LABS: ALKALINE PHOSPHATASE 71 U/L (45-117); TOTAL BILIRUBIN ADULT 0.5 MG/DL (0.2-1.0)
[2016-05-01 11:29] LABS: BACTERIA, URINE OCC /hpf; BLOOD, URINE NEG (NEG); GLUCOSE,URINE NEG (NEG); HYALINE CAST, URINE 1 /lpf (RARE); KETONE, URINE NEG (NEG); MUCUS URINE FEW /lpf (OCC); NITRITE,URINE NEG (NEG); SQUAMOUS EPITHELIAL CELL URINE 1 /hpf (0-5); URINE COLOR YELLOW (YELLW/STRAW)
[2016-05-01 11:30] LABS: COMMENT (UR) CULT NOT INDICATED; CULTURE IF INDICATED CULT NOT INDICATED
--- NOTE | 2016-05-01 12:47 | RADRPT ---
EXAM DATE/TIME: 05/01/2016 10:52 [place] COMPARISON: No previous studies available for comparison. INDICATIONS : Evaluate for pneumonia, pneumothorax or communicable disease. Pre-op sigmoid colectomy 05/07/16. MEDICAL HISTORY : A-fib. SURGICAL HISTORY : Mastectomy, left. ENCOUNTER: Initial ACUITY: 1 day PAIN SCORE: 0/10 LOCATION: Bilateral chest FINDINGS: PA and lateral views of the chest demonstrate the lungs to be symmetrically aerated without evidence of mass, infiltrate or effusion. The cardiomediastinal contours reveal calcification in the aortic k nob and mild unwinding of the thoracic aorta.. Osseous structures are intact. Evidence of prior left mastectomy with surgical clips in the left axilla. CONCLUSION: No acute disease. Pascual Sanchez MD on May 01, 2016 at 12:44 Board Certified Radiologist. This report was verified electronically.
--- NOTE | 2016-05-01 16:10 | EKG ---
Date Performed: 05/01/2016 Time Performed: 10:05:05 PTAGE: 85 years EKG: ATRIAL FIBRILLATION MODERATE T-WAVE ABNORMALITY, CONSIDER INFERIOR ISCHEMIA ABNORMAL ECG NO PREVIOUS TRACING DOCTOR: Nas Luke Interpretating Date/Time 05/01/2016 16:09:43
== END ==
LOC: CPRE 09:45
PROVIDERS: ATTEND Colon & Rectal Surgery
DX: Z01.810 Encounter for preprocedural cardiovascular examination (principal); C18.7 Malignant neoplasm of sigmoid colon; R94.31 Abnormal electrocardiogram [ECG] [EKG]; Z79.01 Long term (current) use of anticoagulants; Z01.812 Encounter for preprocedural laboratory examination; Z01.818 Encounter for other preprocedural examination
CPT/HCPCS: 36415; 71020; 80053; 81001; 82378; 85025; 85610; 85730; 93005